=== PATIENT | female | born 1995 | race Caucasian/White ===

== ENCOUNTER 2017-01-27 14:54 | Emergency (ER) | payer MEDICARE, MEDICAID ==
[~2017-01-27 14:54] MED LIST: ABILIFY15 M1 PO; ADDERAL; ADDERALL 10 MG10 M1 PO; ADDERALL 10 MG10 M2 PO; ADDERALL 10 MG10 MG; ADDERALL XR 3030 M1 PO; ADDERALL XR 3030 MG; ADDERALL XR 3030 MG PO; AMITRIPTYLINE H10 M1 PO; AMPHETAMINE SAL10 MG PO; ANTIVERT12.5 MG PO; AUGMENTIN 500-11 TAB PO; AZITHROMYCIN250 M1 PO; BACTRIM DS TAB1 EAC2 PO; BENTYL20 M1 PO; CEFDINIR300 M1 PO; CIPRO500 M2 PO; ELAVIL25 MG PO; FLONASE16 G2 NS; LEVOXYL50 MCG; LEVOXYL50 MCG PO; LOPERAMIDE2 M2 PO; MACROBID 100 M100 M1 PO; MECLIZINE HCL12.5 M3 PO; METOPROLOL TART25 M1 PO; NAPROSYN500 MG PO; NORCO 5/3251 TAB PO; OMEPRAZOLE20 M2 PO; OMEPRAZOLE20 M3 PO; PROVENTIL HFA6.7 G1 IH; RANITIDINE HCL150 M2 PO; RISPERDAL0.5 MG; RISPERDAL1 M2 PO; RISPERDAL1 MG; RISPERDAL1 MG PO; RISPERIDONE1 M1 PO; RISPERIDONE2 MG PO; SERTRALINE HCL100 M1 PO; SPRINTEC 28 DA1 EACH PO; SYNTHROID50 MCG; SYNTHROID75 MC1 PO; TOPROL XL25 MG PO; TYLENOL650 MG PO; ZANTAC150 M1 PO; ZANTAC150 MG PO; ZOFRAN ODT4 MG PO; ZOFRAN4 M2 PO; ZOLOFT25 M1 PO; ZYRTEC1010 PO; [UNRECOGNIZED DRUG - OTHER] PO; [UNRECOGNIZED DRUG - REMARK]
[2017-01-27] MEDS ORDERED: PRENATAL TABLE1 EAC3 PO (14:59)
[2017-01-27 15:53] LABS: BASO % 0.4 % (0-2); EOS % 1.9 % (0-7); EOSINOPHIL ABSOLUTE COUNT 0.2 tho/cmm (0.0-0.7); HCT-HEMATOCRIT 38.2 % (34.0-49.0); HGB-HEMOGLOBIN 12.6 gm/dl (12.0-15.5); IMMATURE GRANULOCYTES ABSOLUTE 0.04 tho/cmm (0-0.03); IMMATURE GRANULOCYTES PERCENT 0.4 % (0-0.3); LYMPH % 22.5 % (20-45); LYMPH ABSOLUTE COUNT 2.4 tho/cmm (0.8-4.5); MCH (MEAN CORPUSCULAR HGB) 27.3 pg (28.0-32.0); MCV (MEAN CELL VOLUME) 82.7 fl (82.0-96.0); MEAN PLATELET VOLUME 8.4 cmc (9.4-12.4); MONO % 10.6 % (0-12); MONOCYTE ABSOLUTE COUNT 1.1 tho/cmm (0.0-1.2); NEUTROPHIL ABSOLUTE COUNT 6.8 tho/cmm (1.6-8.0); NEUTROPHIL-AUTOMATED 6.8 tho/cmm (1.6-8.0); NEUTROPHILS % 64.2 % (40-80); PLATELET COUNT 287 tho/cmm (150-450); RED BLOOD COUNT 4.62 mil/cmm (4.00-5.20); RED CELL DISTRIBUTION WIDTH 14.8 % (12.4-16.4); WHITE BLOOD COUNT 10.6 tho/cmm (4.0-10.0)
[2017-01-27 16:00] LABS: URINE BILIRUBIN NEGATIVE (NEG); URINE BLOOD NEGATIVE (NEG); URINE GLUCOSE (UA) NEGATIVE (NEG); URINE KETONE NEGATIVE (NEG); URINE LEUKOCYTE ESTERASE NEGATIVE (NEG); URINE NITRITE NEGATIVE (NEG); URINE PROTEIN NEGATIVE (NEG)
[2017-01-27 16:02] LABS: URINE APPEARANCE HAZY; URINE COLOR YELLOW
[2017-01-27 16:05] LABS: ANION GAP 9 mmol/L (0-20); BLOOD UREA NITROGEN 4 mg/dl (6-24); CALCIUM 9.1 mg/dl (8.5-10.5); CARBON DIOXIDE-VENOUS 29 mmol/L (22-32); CHLORIDE 106 mmol/l (96-110); GLUCOSE 96 mg/dL (70-110); SODIUM 140 mmol/L (135-145); eGFR VALUE FOR BLACK >90 mL/Min
[2017-01-27 16:06] LABS: POTASSIUM 3.7 mmol/L (3.7-5.1)
[2017-01-27] MEDS ORDERED: PROMETHAZINE HC25 M3 PO (17:22)
== END 2017-01-27 17:45 ==
LOC: EDMED 14:54
PROVIDERS: Emergency Medicine
DX: O21.9 Vomiting of pregnancy, unspecified (principal); O99.89 Other specified diseases and conditions complicating pregnancy, childbirth and the puerperium; O99.341 Other mental disorders complicating pregnancy, first trimester; O99.331 Smoking (tobacco) complicating pregnancy, first trimester; R19.7 Diarrhea, unspecified; R10.9 Unspecified abdominal pain; F41.9 Anxiety disorder, unspecified; F17.200 Nicotine dependence, unspecified, uncomplicated; Z3A.10 10 weeks gestation of pregnancy
CPT/HCPCS: J2405; J7030

== ENCOUNTER 2017-02-16 06:55 | Emergency (ER) | payer MEDICARE, MEDICAID ==
[~2017-02-16 06:55] MED LIST changes: +PRENATAL TABLE1 EAC3 PO; +PROMETHAZINE HC25 M3 PO
[2017-02-16] MEDS ORDERED: AMOXICILLIN500 M1 PO (07:16)
[2017-02-16 07:43] LABS: URINE BILIRUBIN NEGATIVE (NEG); URINE BLOOD NEGATIVE (NEG); URINE GLUCOSE (UA) NEGATIVE (NEG); URINE KETONE NEGATIVE (NEG); URINE LEUKOCYTE ESTERASE POSITIVE (NEG); URINE NITRITE NEGATIVE (NEG); URINE PH 6.5 (5.0-8.0); URINE PROTEIN NEGATIVE (NEG); URINE SPECIFIC GRAVITY 1.015 (1.003-1.030)
[2017-02-16 07:46] LABS: URINE APPEARANCE HAZY; URINE COLOR PALE YELLOW
[2017-02-16 07:55] LABS: URINE RBC 0-2 /[HPF] (0-5)
[2017-02-16 08:03] LABS: BASO % 1.1 % (0-2); BASO ABSOLUTE COUNT 0.1 tho/cmm (0.0-0.2); EOS % 3.2 % (0-7); EOSINOPHIL ABSOLUTE COUNT 0.2 tho/cmm (0.0-0.7); HCT-HEMATOCRIT 37.9 % (34.0-49.0); HGB-HEMOGLOBIN 12.4 gm/dl (12.0-15.5); LYMPH % 41.2 % (20-45); LYMPH ABSOLUTE COUNT 2.5 tho/cmm (0.8-4.5); MCH (MEAN CORPUSCULAR HGB) 27.1 pg (28.0-32.0); MCHC MEAN CORPUSCULAR HGB CONC 32.7 % (32.0-36.0); MCV (MEAN CELL VOLUME) 82.8 fl (82.0-96.0); MEAN PLATELET VOLUME 8.5 cmc (9.4-12.4); MONO % 14.6 % (0-12); MONOCYTE ABSOLUTE COUNT 0.9 tho/cmm (0.0-1.2); NEUTROPHIL ABSOLUTE COUNT 2.5 tho/cmm (1.6-8.0); NEUTROPHIL-AUTOMATED 2.5 tho/cmm (1.6-8.0); NEUTROPHILS % 39.9 % (40-80); PLATELET COUNT 317 tho/cmm (150-450); RED BLOOD COUNT 4.58 mil/cmm (4.00-5.20); RED CELL DISTRIBUTION WIDTH 14.4 % (12.4-16.4); WHITE BLOOD COUNT 6.2 tho/cmm (4.0-10.0)
[2017-02-16 08:11] LABS: ANION GAP 11 mmol/L (0-20); BLOOD UREA NITROGEN 7 mg/dl (6-24); CALCIUM 8.7 mg/dl (8.5-10.5); CARBON DIOXIDE-VENOUS 27 mmol/L (22-32); CHLORIDE 108 mmol/l (96-110); GLUCOSE 94 mg/dL (70-110); SODIUM 142 mmol/L (135-145); eGFR VALUE FOR BLACK >90 mL/Min
[2017-02-16 08:22] LABS: PREGNANCY-SERUM POSITIVE (NEGATIVE)
[2017-02-16 08:34] LABS: POTASSIUM 3.9 mmol/L (3.7-5.1)
[2017-02-16] MEDS ORDERED: PROAIR HFA8.5 GM INH (08:50)
== END 2017-02-16 09:18 ==
LOC: EDMED 06:55
PROVIDERS: Emergency Medicine
DX: O99.511 Diseases of the respiratory system complicating pregnancy, first trimester (principal); J45.909 Unspecified asthma, uncomplicated; J02.0 Streptococcal pharyngitis; O16.1 Unspecified maternal hypertension, first trimester; O99.341 Other mental disorders complicating pregnancy, first trimester; F90.9 Attention-deficit hyperactivity disorder, unspecified type; F31.9 Bipolar disorder, unspecified; O99.281 Endocrine, nutritional and metabolic diseases complicating pregnancy, first trimester; E03.9 Hypothyroidism, unspecified; O99.331 Smoking (tobacco) complicating pregnancy, first trimester; F17.200 Nicotine dependence, unspecified, uncomplicated; Z87.891 Personal history of nicotine dependence; Z3A.01 Less than 8 weeks gestation of pregnancy; Z79.899 Other long term (current) drug therapy

== ENCOUNTER 2017-03-25 16:09 | Inpatient (IN) | payer MEDICARE, MEDICAID ==
[~2017-03-25 16:09] MED LIST changes: +AMOXICILLIN500 M1 PO; +PROAIR HFA8.5 GM INH
[2017-03-25] MEDS ORDERED: ADDERALL 10 MG10 M2 PO (17:38)
[2017-03-25] MEDS ORDERED: ADDERALL XR 3030 M1 PO (17:38)
[2017-03-25] MEDS ORDERED: OMEPRAZOLE40 M2 PO (17:39)
[2017-03-25] MEDS ORDERED: ACID REDUCER75 M1 PO (17:40)
[2017-03-25 18:29] LABS: BASO % 0.1 % (0-2); EOS % 0.8 % (0-7); EOSINOPHIL ABSOLUTE COUNT 0.1 tho/cmm (0.0-0.7); HCT-HEMATOCRIT 38.5 % (34.0-49.0); HGB-HEMOGLOBIN 12.4 gm/dl (12.0-15.5); IMMATURE GRANULOCYTES ABSOLUTE 0.01 tho/cmm (0-0.03); IMMATURE GRANULOCYTES PERCENT 0.1 % (0-0.3); LYMPH % 35.3 % (20-45); LYMPH ABSOLUTE COUNT 2.6 tho/cmm (0.8-4.5); MCH (MEAN CORPUSCULAR HGB) 26.6 pg (28.0-32.0); MCHC MEAN CORPUSCULAR HGB CONC 32.2 % (32.0-36.0); MCV (MEAN CELL VOLUME) 82.4 fl (82.0-96.0); MEAN PLATELET VOLUME 8.6 cmc (9.4-12.4); MONO % 8.9 % (0-12); MONOCYTE ABSOLUTE COUNT 0.7 tho/cmm (0.0-1.2); NEUTROPHIL ABSOLUTE COUNT 4.1 tho/cmm (1.6-8.0); NEUTROPHIL-AUTOMATED 4.1 tho/cmm (1.6-8.0); NEUTROPHILS % 54.8 % (40-80); PLATELET COUNT 340 tho/cmm (150-450); RED BLOOD COUNT 4.67 mil/cmm (4.00-5.20); RED CELL DISTRIBUTION WIDTH 14.2 % (12.4-16.4); WHITE BLOOD COUNT 7.4 tho/cmm (4.0-10.0)
[2017-03-25 18:36] LABS: PROTHROMBIN TIME 11.2 SECONDS (9.0-13.6)
[2017-03-25 18:48] LABS: ALB/GLOB RATIO 0.9 (0.8-2.0); ALBUMIN 3.5 g/dl (3.5-5.0); ALKALINE PHOSPHATASE 115 U/L (33-138); ALT/SGPT 26 U/L (12-78); ANION GAP 10 mmol/L (0-20); AST/SGOT 19 U/L (10-40); BILIRUBIN,TOTAL 0.3 mg/dl (0-1.5); BLOOD UREA NITROGEN 15 mg/dl (6-24); CALCIUM 8.6 mg/dl (8.5-10.5); CARBON DIOXIDE-VENOUS 28 mmol/L (22-32); CHLORIDE 112 mmol/l (96-110); CREATININE 0.83 mg/dl (0.50-1.10); GLUCOSE 98 mg/dL (70-110); SODIUM 146 mmol/L (135-145); eGFR VALUE FOR BLACK >90 mL/Min
[2017-03-25] MEDS ORDERED: VENTOLIN HFA18 G2 PO (18:50)
[2017-03-25] MEDS ORDERED: SERTRALINE HCL25 M3 PO (18:51)
[2017-03-25] MEDS ORDERED: ABILIFY10 M1 PO (18:52)
[2017-03-25] MEDS ORDERED: MECLIZINE HCL25 M3 PO (18:53)
[2017-03-25] MEDS ORDERED: AMITRIPTYLINE H25 M1 PO (18:55)
== END 2017-03-26 15:00 | disposition left against medical advice (07) | DRG 935 ==
LOC: BURN 16:09
PROVIDERS: ADMIT Surgery
PROC: 0HR5XK3 Replacement of Chest Skin with Nonautologous Tissue Substitute, Full Thickness, External Approach (ICD-10-PCS; principal; 2017-03-25)
PROC: 0HR7XK3 Replacement of Abdomen Skin with Nonautologous Tissue Substitute, Full Thickness, External Approach (ICD-10-PCS; 2017-03-25)
DX: T21.01XA Burn of unspecified degree of chest wall, initial encounter (principal); T31.0 Burns involving less than 10% of body surface; T21.02XA Burn of unspecified degree of abdominal wall, initial encounter; J45.909 Unspecified asthma, uncomplicated; F31.9 Bipolar disorder, unspecified; E03.9 Hypothyroidism, unspecified; X08.8XXA Exposure to other specified smoke, fire and flames, initial encounter; Z91.19 Patient's noncompliance with other medical treatment and regimen
CPT/HCPCS: C5273; C5274; J0690; J2270; Q4136